=== PATIENT | female | born 1930 | race Caucasian/White ===

== ENCOUNTER 2018-11-14 07:58 | Observation (INO) ==
[2018-11-14] MEDS ORDERED: *HR* FentaNYL (PF) 100 MCG/2 ML VIAL IVP ONE ×2 (08:08→11:26)
[2018-11-14 08:34] LABS: Hematocrit 25.4 % (35.3-44.9); Lymphocytes # 0.7 K/mcL (0.6-4.6); White Blood Count 1.7 K/mcL (4.3-11.1)
[2018-11-14 08:35] LABS: Hemoglobin 8.3 g/dL (11.5-15.4); Mean Corpuscular HGB Conc 32.7 g/dL (31.6-35.5); Mean Corpuscular Hemoglobin 41.1 pg (28.0-33.3); Mean Corpuscular Volume 125.7 fL (83.0-100.0); Mean Platelet Volume 8.5 fL (9.4-12.4); Platelet Count 230 K/mcL (140-400); Red Blood Count 2.02 M/mcL (3.82-4.97); Red Cell Distribution Width 14.7 % (11.5-14.5)
[2018-11-14 08:55] LABS: Monocytes # 0.1 K/mcL (0.0-1.3); Neutrophils # 0.9 K/mcL (1.6-8.9)
[2018-11-14 08:56] LABS: BUN/Creatinine Ratio 22 (6-26); Blood Urea Nitrogen 23 mg/dL (8-23); Calcium 10.7 mg/dL (8.6-10.3); Carbon Dioxide 31 mEq/L (23-29); Chloride 105 mEq/L (98-107); Creatine Kinase 125 Units/L (30-223); Glucose 88 mg/dL (70-105); Osmolality,Calculated 283 (280-300); Potassium 4.4 mEq/L (3.5-5.1); Sodium 135 mEq/L (136-145); Troponin I < 0.03 ng/mL (< 0.04); eGFR For African Americans 59 (> 60); eGFR For Non-African Americans 49 (> 60)
[2018-11-14 08:58] LABS: Anisocytosis 1+ (Not Present); Macrocytosis Present (Not Present); Polychromasia 1+ (Not Present)
[2018-11-14 08:59] LABS: Platelet Estimate Normal (Normal)
[2018-11-14] MEDS ORDERED: Ondansetron 4 MG/2 ML VIAL IVP PRN (11:52)
[2018-11-14] MEDS ORDERED: Naloxone 0.4 MG/ML INJ IVP PRN (11:52)
[2018-11-14 12:38] LABS: Bilirubin,Urine Negative (Negative); Blood,Urine Trace (Negative); Color,Urine Yellow (Yellow); Glucose,Urine (UA) Normal (Normal); Ketones,Urine Negative (Negative); Leukocyte Esterase,Urine Large (Negative); Nitrite,Urine Positive (Negative); PH,Urine 6.5 pH Units (5.0-8.0); Protein,Urine 30 mg/dL (Neg-Trace); Specific Gravity,Urine 1.016 (1.010-1.025); Urobilinogen,Urine Normal (Normal)
[2018-11-14 12:41] LABS: Bacteria,Urine Present per hpf (None-Few); WBC,Urine TNTC per hpf (0-3)
[2018-11-14 12:42] LABS: RBC,Urine Present per hpf (0-3); Squamous Epithelial Cell,Urine Present per lpf (None-Few)
[2018-11-14 12:43] LABS: Renal Epithelial Cells,Urine Present per hpf (None-Few)
[2018-11-14 12:49] LABS: Clarity,Urine Turbid (Clear)
[2018-11-14] MEDS: 0.9 % Sodium Chloride 1,000 ML IVC SCH (15:05)
[2018-11-14] MEDS: Gabapentin 300 MG CAPSULE PO SCH ×3 (15:05→20:59)
[2018-11-14] MEDS: *HR* Heparin 5,000 UNIT/ML VIAL SQ SCH ×2 (15:05→21:06)
[2018-11-14] MEDS: *HR* HYDROmorphone (PF) 1 MG/ML SYRINGE IVP PRN (16:37)
[2018-11-14] MEDS: Hydroxyurea 500 MG CAPSULE PO SCH (20:59)
[2018-11-14] MEDS: Famotidine 20 MG TABLET PO SCH (20:59)
[2018-11-15] MEDS: *HR* HYDROmorphone (PF) 1 MG/ML SYRINGE IVP PRN ×2 (04:42→12:53)
[2018-11-15] MEDS: 0.9 % Sodium Chloride 1,000 ML IVC SCH (04:44)
[2018-11-15] MEDS: *HR* Heparin 5,000 UNIT/ML VIAL SQ SCH (05:31)
[2018-11-15 07:27] LABS: White Blood Count 1.6 K/mcL (4.3-11.1)
[2018-11-15 07:29] LABS: Hematocrit 16.3 % (35.3-44.9); Immature Platelets 1.6 % (1.1-6.1); Lymphocytes # 0.6 K/mcL (0.6-4.6); Mean Corpuscular HGB Conc 31.9 g/dL (31.6-35.5); Mean Corpuscular Hemoglobin 40.6 pg (28.0-33.3); Mean Corpuscular Volume 127.3 fL (83.0-100.0); Mean Platelet Volume 9.3 fL (9.4-12.4); Platelet Count 239 K/mcL (140-400); Red Blood Count 1.28 M/mcL (3.82-4.97); Red Cell Distribution Width 15.2 % (11.5-14.5)
[2018-11-15 07:35] LABS: Calcium 9.7 mg/dL (8.6-10.3); Magnesium 1.9 mg/dL (1.6-2.6); Phosphorous 3.6 mg/dL (2.7-4.5); Potassium 4.8 mEq/L (3.5-5.1)
[2018-11-15 07:45] LABS: Hemoglobin 5.2 g/dL (11.5-15.4)
[2018-11-15 07:52] LABS: Monocytes # 0.1 K/mcL (0.0-1.3); Neutrophils # 0.9 K/mcL (1.6-8.9); Platelet Estimate Normal (Normal)
[2018-11-15 07:54] LABS: Macrocytosis Present (Not Present); Polychromasia 1+ (Not Present)
[2018-11-15] MEDS: Famotidine 20 MG TABLET PO SCH (08:14)
[2018-11-15] MEDS: Gabapentin 300 MG CAPSULE PO SCH (08:15)
[2018-11-15] MEDS: Hydroxyurea 500 MG CAPSULE PO SCH (08:28)
[2018-11-15] MEDS ORDERED: Cholecalciferol (D-3) 1,000 UNIT (25MCG) TABLET PO SCH (09:00)
[2018-11-15] MEDS ORDERED: Cyanocobalamin (B-12) 1,000 MCG TABLET PO SCH (09:00)
[2018-11-15] MEDS ORDERED: Lactobacillus 1 EACH CAP.SPRINK PO SCH (09:00)
[2018-11-15 12:36] VITALS: BP 118/68
[2018-11-15] MEDS ORDERED: Aminoglycoside Consult 1 EACH MC ONE (15:59)
== END 2018-11-15 16:00 | disposition hospice, inpatient (51) ==
LOC: 3NENU 07:58 → EMEROOARM 07:58 → SUATTDRO 11:17 → 3NENU 12:25
PROVIDERS: ADMIT Pharmacist; ATTEND Student in an Organized Health Care Education/Training Program